=== PATIENT | female | born 2000 | race Caucasian/White ===

== ENCOUNTER 2023-07-27 20:51 | Emergency (ER) | payer OTHER ==
[~2023-07-27] VITALS: Ht 162.6 cm; Wt 81.8 kg
[2023-07-27] MEDS ORDERED: ACETAMINOPHEN 325 MG TAB PO ONE (23:15)
[2023-07-28 01:54] VITALS: BP 128/78; TEMP 97.9; O2SAT 97
== END 2023-07-28 01:55 | disposition home or self-care (01) ==
LOC: M ED 20:51 → EDBD 20:51 → M ED 07-28 01:55
DX: F43.0 Acute stress reaction (principal); Z63.0 Problems in relationship with spouse or partner